=== PATIENT | female | born 1945 | race Caucasian/White ===

== ENCOUNTER 2017-07-01 20:06 | Emergency (ER) | payer MEDICARE, MEDICAID ==
[~2017-07-01] VITALS: Ht 157.5 cm; Wt 72.6 kg
[~2017-07-01 20:06] MED LIST: ASPIRIN CHILDRE81 M1 PO; B/P PILL PO; CHOLESTEROL PO; CYCLOBENZ5 MG PO; LEVEMIR100 U/ML SC; LEVOTHYROXINE0.05 MG NG; LEVOTHYROXINE0.1 M1 PO; LOSARTAN POTAS100 MG PO; LOSARTAN POTASS1 TA1 PO; MECLIZINE 25MG25 MG PO; MELOXICAM7.5 MG PO; METFORMIN 500M500 M1 PO; METHOTREXATE 22.5 MG PO; PRAVASTATIN 20M20 MG PO; PRAVASTATIN SOD80 M1 PO; SEPTRA DS 800 M1 TAB PO; THYROID PO; ZOFRAN4 MG PO
--- OUTSIDE RECORDS SUMMARY | 2017-07-01 20:25 | External Medical Summary Rpt ---
Author Author MANUEL Address Unknown Phone [email or web address] Purpose Continuity of Care Document - through 2016
--- OUTSIDE RECORDS SUMMARY | 2017-07-01 20:25 | External Medical Summary Rpt ---
Author Author MANUEL Address Unknown Phone [email or web address] Purpose Continuity of Care Document - through 2016
--- OUTSIDE RECORDS SUMMARY | 2017-07-01 20:25 | External Medical Summary Rpt ---
Author Author , MANUEL JACKSON Address Unknown Phone [email or web address] Immunization Name Date Rout CVX Reac Dose Comm Prov Is Faci e tion ent ider Refu lity Give sed n Infl 09-0 135 999 Hist D203 No D203 uenz 2-20 oric 45 45 a, 16 al High Info rmat Dose ion - Sour ce Unsp ecif ied
--- OUTSIDE RECORDS SUMMARY | 2017-07-01 20:25 | External Medical Summary Rpt ---
Author Author MANUEL Address Unknown Phone [email or web address] Purpose Continuity of Care Document - through 2016
--- OUTSIDE RECORDS SUMMARY | 2017-07-01 20:25 | External Medical Summary Rpt ---
Author Author MANUEL Address Unknown Phone [email or web address] Purpose Continuity of Care Document - through 2016
--- OUTSIDE RECORDS SUMMARY | 2017-07-01 20:25 | External Medical Summary Rpt ---
Author Author , MANUEL JACKSON Address Unknown Phone [email or web address] Immunization Name Date Rout CVX Reac Dose Comm Prov Is Faci e tion ent ider Refu lity Give sed n Infl 09-0 135 999 Hist D203 No D203 uenz 2-20 oric 45 45 a, 16 al High Info rmat Dose ion - Sour ce Unsp ecif ied
[2017-07-01 20:32] LABS: LYMPH # 1.6 K/mm3 (0.7-4.5); LYMPH % 23.6 % (10-50.0)
[2017-07-01 20:33] LABS: HEMOGLOBIN 8.3 g/dL (12.2-16.2)
[2017-07-01 20:57] LABS: BUN 25 mg/dL (7-18)
[2017-07-01 21:08] LABS: GFR (ESTIMATED) 20 ML/MIN (59-)
--- NOTE | 2017-07-01 21:17 | Emergency Room Report ---
History of Present Illness Time Seen by 2022 Presenting Problem in Triage Pt arrived:Walked Presenting Problem:chest pain since 1499 after reaching to catch a falling pickle jar. reproducable upper bilateral chest wall pain. 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 N Clinical Suspician of Infection? Y Mental Status: 1 - Regular (Normal Baseline) Sepsis Risk:Low Sepsis Risk Have you (or family members/close friends) recently traveled outside the [place]? N If Yes, where/when: Have you had exposure to infectious disease within the past month? TB? Other? Specify: Source patient, RN notes reviewed, family, old records Exam Limitations no limitations Comment pt with sudden jerking for pickle jar and noted to have lt ant chest pain - crispin with insp and palpation and certain mov - pt with no fever or rash and no sob Cardiac Chest Pain Chest pain indicative of cardiac No Timing/Duration this evening Severity moderate ALLERGIES Coded Allergies: morphine (NA-NAUSEA/VOMITING 10/12/15) Home Medications Reported Medications Pravastatin Sodium 80 MG PO QHS #30 Levothyroxine Sodium (Levothyroxine 0.1MG) 0.1 MG PO DAILY #30 LOSARTAN/HYDROCHLOROTHIAZIDE (Losartan-Hctz 100-25 MG Tab) 1 TAB PO DAILY #30 Cyclobenzaprine Hcl (Cyclobenzaprine) 5 MG PO TID PRN MUSCLES #30 Meloxicam (Meloxicam 7.5MG) 7.5 MG PO DAILY #30 Insulin Detemir (Levemir 10ML VIAL) 32 UNITS SC DAILY Methotrexate 2.5 MG PO WEEKLY Metformin HCl (Metformin) 1 TAB PO BID Aspirin 1 TAB PO DAILY History Medical History General CAD? No Angina: No [place]: No Hypertension? Yes Hyperlipidemia? Yes CHF? No DVT? No PE? No COPD? No Asthma? No Anemia? No GERD? Yes Gastric ulcers? No GI Bleed? No Hernia? No Thyroid Problems? Yes Hypothyroidism? Yes CVA? No Seizures? No Diabetes? Yes Insulin Dependent: Yes Insulin Pump: No Home FSBS? Yes Renal Insuffiency? No End Stage Renal Disease? No UTI? No Stones? No GB Disease: Yes Nephritic Syndrome? No Asplenia? No Hepatitis? No Sickle Cell Disease? No Arthritis? No Migraines? No Cataracts? No Glaucoma? No MRSA? No HIV? No TB? No Anxiety? No Depression? No Cancer? No Immunization Hx DT/Tetanus 1-4 YRS Surgical Hx Previous Surgery?Y CHOLECYSTECTOMY LAP BAND SURGERY Cataract(s) Social History Smoking Hx Smoker: Never Smoker Tobacco: No Alcohol Alcohol: No Drugs none Review of Systems All Other Systems Reviewed and Negative Constitutional denies fever Eyes denies drainage ENT denies: ear discharge, epistaxis, throat pain. Respiratory denies cough, denies shortness of breath, denies wheezing Cardiovascular chest pain, denies palpitations, denies syncope, other Gastrointestinal denies abdominal pain, denies diarrhea, denies vomiting Genitourinary denies: dysuria, frequency, hesitancy, hematuria. Musculoskeletal denies back pain, denies joint pain, denies joint swelling, denies neck pain Skin denies rash Psychiatric/Neurological denies headache, denies seizure Physical Exam Vital Signs Vital Signs Date Time Temp Pulse Resp B/P Pulse O2 O2 Flow FiO2 Ox Delivery Rate 07/01 2315 59 20 134/75 97 07/01 2232 59 20 129/71 97 07/01 2058 99.2 82 20 109/64 95 07/01 2009 99.2 82 20 135/71 95 - WBC >12,000 or <4,000 or 10% bands? 2 or more SIRS Criteria Met? B/P:134/75 MAP:92 Creatinine >2.0? UA output<0.5ml/kg/hr for 2 hrs? Platelet count >100,000? Lactate >2.0mmol/1? INR >1.2 or PTT > than 60 sec? Evidence of Organ Dysfunction? Provider documented clinical suspician of infection? Y Sepsis Criteria Count: 1 Sepsis Risk: Low Sepsis Risk General Appearance no apparent distress Eye Exam - bilateral eye PERRL, bilateral eye EOMI Ear, Nose, Throat normal ENT inspection Neck non-tender Respiratory Status Yes: tender on palpation. No: respiratory distress. Lung Sounds bilateral: lungs clear. 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 No Results/Orders Laboratory Tests 07/01/172023: Sodium 129 L, Potassium 3.4 L, Chloride 94 L, Carbon Dioxide 28, BUN 25 H, Creatinine 2.4 H, Estimated Creat Clear 24 L, Estimated GFR (MDRD) 20 L, Glucose 322 H, Calcium 8.7, Total Bilirubin 0.3, AST 32, ALT 27, Alkaline Phosphatase 163 H, Creatine Kinase 30, CK-MB (CK-2) Rel Index 1.7, CK and CKMB Interp < 0.5, Troponin I < 0.02, Total Protein 7.5, Albumin 3.2 L, Globulin 4.3 H, Albumin/Globulin Ratio 0.7 L, WBC 7.0, RBC 3.09 L, Hgb 8.3 L, Hct 27.1 L , MCV 87.8, RDW 16.8, Plt Count 325, MPV 7.7, Gran % 68.3, Gran # 4.8, Lymphocytes % 23.6, Monocytes % 6.5, Eosinophils % 1.2, Basophils % 0.4, Lymphocytes # 1.6, Monocytes # 0.5, Eosinophils # 0.1, Basophils # 0.0, PUBS MCHC 30.6 L, MCH 26.9 L Current Medication Orders Sig/Mickey Start time Last Medication Dose Route Stop Time Status Admin Aspirin 243 MG ONCE ONE 07/01 2115 DC 07/01 PO 07/01 Aspirin 162 MG ONCE ONE 07/01 2100 CAN PO 07/01 2101 Aspirin 0 .STK-MED ONE 07/01 2059 DC .ROUTE Sodium Chloride 10 ML PRN PRN 07/01 2030 AC IV 07/02 2023 Orders Procedure Date/time Status DIET-NOTHING BY MOUTH 07/[address] CHEST W/O CONTRAST 07/[address] SCAN REQ 07/01 2119 Active 12 LEAD EKG-BESSON (INITIAL) 07/01 2024 Active ELECTROCARDIOGRAM REQUEST 07/01 2024 Active CHEST(2 VIEWS-NOT PORTABLE) 07/01 2024 Active IV SALINE LOCK 07/01 2024 Active CBC WITH AUTO DIFF 07/01 2024 Complete CARDIAC ENZYMES 07/01 2024 Complete CHEM 12 PROFILE 07/01 2024 Complete CM/EKG CM/sports trainer Rhythm Normal Sinus Rhythm EKG no evid. of ischemic chgs XRAY/CT/US XRAY/CT/US 1 XRAY chest XR interpretation by reviewed by me Xray Results normal/NAD XRAY/CT/US [address] interpretation by discussed w/radiologist Time results known: 2321 CT Results abnormal (see report) Departure Departure Time of Disposition 2312 Disposition DC Home or Self Care(routine) Clinical Impression Primary Impression: Costochondritis, acute Secondary Impressions: Anemia Qualifiers: Anemia type: unspecified type Qualified Code: D64.9 - Anemia, unspecified Diabetes mellitus Qualifiers: Diabetes mellitus type: type 1 Diabetes mellitus complication status: with unspecified complications Qualified Code: E10.8 - Type 1 diabetes mellitus with unspecified complications Renal insufficiency Condition STABLE Referrals Harsh Leblanc MD (Family) Patient Instructions DI for Costochondritis Additional Instructions please call pcp monday for follow up and hold meds we discussed till then Discharge Counseling Counseled pt/family regarding diagnosis, test results, medications/RX, follow up needs ED Critical Care Critical Care No at 2324
[2017-07-01 23:49] VITALS: BP 134/75
--- NOTE | 2017-07-02 08:17 | RADIOLOGY REPORT PS360 ---
CHEST(2 VIEWS-NOT PORTABLE) HISTORY: Sternal/chest pain HTN ORDERING PHYSICIAN: Toya Martinez MD PATIENT AGE: 72 years COMPARISON: 07/15/2016 FINDINGS: The cardiomediastinal silhouette and pulmonary vascularity are within normal limits. The lungs are clear without infiltrates, suspicious nodules, or pleural effusions. No acute bony abnormalities. Gastric lap band is present IMPRESSION: No change with no acute finding
--- NOTE | 2017-07-02 09:31 | RADIOLOGY REPORT PS360 ---
CT CHEST W/O CONTRAST HISTORY: Left-sided chest pain following injury CHEST PAIN ORDERING PHYSICIAN: Toya Martinez MD PATIENT AGE: 72 years TECHNIQUE: Helical acquisition obtained without contrast.. Axial, sagittal, and coronal reformatted images are generated and reviewed. COMPARISON: 01/27/2017 FINDINGS: Normal heart size. No evidence of aortic aneurysm. No mediastinal or hilar mass. No evidence of pneumothorax. There is a 5 mm nodular opacity in the central aspect of the right upper lobe which is unchanged. No new nodules are evident. Dependent changes are present in the lung bases. No effusions or infiltrates. No displaced fractures. Specifically, the sternum and left ribs have an unremarkable appearance. There is an old right fifth rib fracture anteriorly. Gastric lap band is present. There is gas and fluid within the esophagus which is slightly distended. A small rounded opacity is present distal aspect of the esophagus etiology indeterminate. This was identified on the previous exam and is not significantly changed. Upper endoscopy may be of further value. Ingested foreign body or submucosal lesion is a consideration. IMPRESSION: 1. No acute finding. No evidence of acute fracture. 2. Possible foreign body within the distal esophagus versus submucosal lesion. Follow-up suggested.
== END 2017-07-01 23:51 | disposition home or self-care (01) ==
LOC: ER 20:06
PROVIDERS: Emergency Medicine
DX: M94.0 Chondrocostal junction syndrome [Tietze] (principal); D64.9 Anemia, unspecified; E10.8 Type 1 diabetes mellitus with unspecified complications; N28.9 Disorder of kidney and ureter, unspecified; K21.9 Gastro-esophageal reflux disease without esophagitis; I10 Essential (primary) hypertension

== ENCOUNTER → 2017-10-03 | Day surgery (SDC) | payer MEDICARE, MEDICAID ==
[2017-10-03 09:28] VITALS: BP 157/86
== END ==
LOC: SDC 08:44
PROVIDERS: Ophthalmology
PROC: 085K3ZZ Destruction of Left Lens, Percutaneous Approach (ICD-10-PCS; principal; 2017-10-03 09:00)
DX: H26.492 Other secondary cataract, left eye (principal); Z96.1 Presence of intraocular lens; H02.839 Dermatochalasis of unspecified eye, unspecified eyelid